=== PATIENT | male | born 2000 | race Caucasian/White ===

== ENCOUNTER → 2021-01-02 16:49 | Outpatient (CLI) | payer OTHER, SELFPAY ==
--- NOTE | 2021-01-02 16:55 | CT_ITS ---
INDICATION: SINUSITIS EXAMINATION: CT SINUSES - CT Sinuses W/O Contrast Injection TECHNIQUE: Helically acquired images were obtained of the paranasal sinuses. A radiation dose optimization technique was used for this scan. IV Contrast dosage and agent: COMPARISON: None. FINDINGS: FRONTAL SINUSES AND RECESSES: Clear. ETHMOID AIR CELLS: Clear. MAXILLARY SINUSES: Clear. OSTIOMEATAL COMPLEXES: Clear and normally formed. SPHENOID SINUSES: A couple of small areas of mild mucosal thickening. SPHENOETHMOIDAL RECESSES: Clear. ANCILLARY FINDINGS: NASAL TURBINATES: Unremarkable. NASAL SEPTUM: Midline. ORBITS: Unremarkable. VISUALIZED DENTITION: No periodontal osseous erosion. Visualized intracranial contents are unremarkable. CT/Sinus/Facial Bone IMPRESSION: Negative CT of the sinuses. Electronically Signed: Ashok Pat DO at 21:04 EST Tel , Service support ,
== END ==
PROVIDERS: Visit Provider Otolaryngology
DX: J32.8 Other chronic sinusitis (principal)
CPT/HCPCS: 70486